=== PATIENT | female | born 1940 | race African-American/Black ===

== ENCOUNTER 2019-03-09 11:41 | Emergency (ER) | payer MEDICARE, OTHER ==
[~2019-03-09] VITALS: Ht 162.6 cm; Wt 62.0 kg
[2019-03-09] MEDS ORDERED: SODIUM CHLORIDE 0.9% 1,000 ML IV ONE (12:17)
[2019-03-09 12:27] LABS: BASOPHILS % 0.2 % (0.0-2.0); EOSINOPHILS % 0.9 % (0.0-5.0); HEMATOCRIT. 33.4 % (36.0-48.0); HEMOGLOBIN. 11.5 g/dL (12.0-16.0); LYMPHOCYTES % 16.6 % (20.0-50.0); MEAN CORPUSCULAR HEMOGLOBIN 31.7 pg (28.0-32.0); MEAN CORPUSCULAR VOLUME 92.3 fL (81.0-99.0); MONOCYTES % 5.9 % (2.0-8.0); NEUTROPHILS % 76.4 % (40.0-76.0); PLATELET 133 x1000/uL (130-400); RED BLOOD CELL COUNT 3.62 mill/uL (4.2-5.4); RED CELL DISTRIBUTION WIDTH 14.7 % (11.6-14.6)
[2019-03-09] MEDS ORDERED: MECLIZINE 25MG TABLET PO ONE ×2 (12:30→14:00)
[2019-03-09 12:32] LABS: CHLORIDE 106 mEq/L (98-107)
[2019-03-09 12:51] LABS: PROTHROMBIN TIME 10.7 sec (9.6-11.0)
[2019-03-09] MEDS ORDERED: ASPIRIN 325MG EC TABLET PO ONE (13:15)
[2019-03-09] MEDS ORDERED: ASPIRIN 81MG TABLET PO ONE (14:00)
[2019-03-09 16:01] VITALS: BP 112/59
== END 2019-03-09 16:01 | disposition short-term general hospital (02) ==
LOC: ER 11:58
DX: R55 Syncope and collapse (principal); I10 Essential (primary) hypertension; W19.XXXA Unspecified fall, initial encounter; R42 Dizziness and giddiness
CPT/HCPCS: 36415; 70450; 71045; 80053; 83880; 84484; 85025; 85610; 85730; 93005; 96360; 99285; J7030; J8597; Z7610